=== PATIENT | female | born 1965 | race Caucasian/White ===

== ENCOUNTER 2016-11-18 12:35 | Emergency (ER) | payer MEDICAID ==
[2016-11-18 12:41] VITALS: BP 128/81
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
== END 2016-11-18 13:50 | disposition home or self-care (01) ==
LOC: DL.ED 12:35
DX: S20.20XA Contusion of thorax, unspecified, initial encounter (principal); K21.9 Gastro-esophageal reflux disease without esophagitis; F32.9 Major depressive disorder, single episode, unspecified; F17.210 Nicotine dependence, cigarettes, uncomplicated; F41.9 Anxiety disorder, unspecified; Z90.49 Acquired absence of other specified parts of digestive tract; Z88.0 Allergy status to penicillin; Y04.8XXA Assault by other bodily force, initial encounter
CPT/HCPCS: 71101-RT; 99283

== ENCOUNTER 2017-08-30 12:02 | Emergency (ER) | payer MEDICAID ==
[2017-08-30 12:23] VITALS: BP 113/71
[2017-08-30] MEDS ORDERED: Acetaminophen 325 MG Tab PO ONE (13:02)
[2017-08-30 13:18] LABS: CHLORIDE,CL 106 mmol/L (101-111); SODIUM,NA 137 mmol/L (135-145)
[2017-08-30] MEDS ORDERED: methylPREDNISolone Sodium Succinate 125 MG/2 ML SDV IVPUSH ONE (13:33)
[2017-08-30] MEDS ORDERED: Albuterol/Ipratropium 3.0-0.5 MG/3 ML Neb Soln NEB ONE (13:35)
--- NOTE | 2017-09-02 04:31 | EDM.PDOC ---
Scribed by Krista Gordon 08/30/17 [id number] for Rita Kirk PA-C ED HPI GENERAL MEDICAL PROBLEM - General Chief Complaint: Respiratory Problem Stated Complaint: COLD [phone] Time Seen by Provider: 08/30/17 12:25 Source of Information: Reports: Patient, RN, RN Notes Reviewed History Limitations: Reports: No Limitations - History of Present Illness INITIAL COMMENTS - FREE TEXT/NARRATIVE: Patient presents to ER with cough, lungs burning and fever x1 week. She has a productive cough with pink green yellow sputum. Her Albuterol is not helping. Onset: Gradual Duration: Getting Worse Location: Reports: Chest Severity: Mild Improves with: Reports: None Worsens with: Reports: None Associated Symptoms: Reports: No Other Symptoms Throat Pain Score (Numeric/FACES): 8 - Related Data Allergies Allergy/AdvReac Type Severity Reaction Status Date / Time Penicillins Allergy Rash Verified 11/06/16 07:48 Home Meds: Home Meds ALPRAZolam [Alprazolam] 1 tab PO ASDIRECTED 07/29/16 [History] Acetaminophen/Butalbital/Caff [Fioricet 325-50-40 MG] 1 tab PO ASDIRECTED PRN MDD \ 07/29/16 [History] Estrogens, Conjugated [Premarin Vaginal Crm] 0.5 gm VAG ASDIRECTED PRN 07/29/16 [History] Multivitamin [Multivitamins] 1 tab PO DAILY 07/29/16 [History] Omeprazole Magnesium [Prilosec Otc] 1 tab PO DAILY 07/29/16 [History] Progesterone,Micronized [Progesterone Micronized] 1 squirt TOP DAILY 07/29/16 [ History] Promethazine HCl 25 mg PO ASDIRECTED PRN 07/29/16 [History] Ranitidine HCl [Zantac 75] 1 tab PO BID 07/29/16 [History] Testosterone 5 gm TD DAILY 07/29/16 [History] hydrOXYzine Pamoate [Hydroxyzine Pamoate] 1 tab PO TID 07/29/16 [History] Albuterol [IJD: Ventolin HFA] 1 puff IH Q4HR PRN 11/06/16 [History] Kelp 100 mg PO DAILY 11/06/16 [History] Pregabalin [Lyrica] 50 mg PO TID 11/06/16 [History] Thiamine HCl [Vitamin B-1] 50 mg PO DAILY 11/06/16 [History] oxyCODONE 5 mg PO 5XDAY PRN 11/06/16 [History] Past Medical History Respiratory History: Reports: Pneumothorax, Other (See Below) Other Respiratory History: collapsed lung Gastrointestinal History: Reports: GERD Musculoskeletal History: Reports: Back Pain, Chronic, Fracture, Other (See Below ) Psychiatric History: Reports: Anxiety, Depression - Past Surgical History HEENT Surgical History: Reports: Tonsillectomy Respiratory Surgical History: Reports: Lung Resection GI Surgical History: Reports: Lysis of Adhesions Female Surgical History: Reports: Section, Cystectomy, Other (See Below) Other Female Surgeries/Procedures: partial hyst Social & Family History - Family History Family Medical History: Noncontributory - Tobacco Use Smoking Status *Q: Current Every Day Smoker Years of Tobacco use: 35 Packs/Tins Daily: 1 Second Hand Smoke Exposure: Yes - Caffeine Use Caffeine Use: Reports: Soda, Tea - Recreational Drug Use Recreational Drug Use: No - Living Situation & Occupation Living situation: Reports: with Significant Other Occupation: Disabled ED ROS GENERAL - Review of Systems Review Of Systems: ROS reveals no pertinent complaints other than HPI. ED EXAM, GENERAL - Physical Exam Exam: See Below Exam Limited By: No Limitations General Appearance: Alert, WD/WN, No Apparent Distress Eye Exam: Bilateral Eye: Normal Inspection Ears: Normal External Exam, Normal Canal, Hearing Grossly Normal, Normal TMs Nose: Normal Inspection, Normal Mucosa, No Blood Throat/Mouth: Normal Inspection, Normal Lips, Normal Teeth, Normal Gums, Normal Oropharynx, Normal Voice, No Airway Compromise Head: Atraumatic, Normocephalic Neck: Lymphadenopathy (L), Lymphadenopathy (R) Respiratory/Chest: No Respiratory Distress, Rales (fine at bases), Other ( diminished harsh dry cough with deep inspiration. ) Cardiovascular: Normal Peripheral Pulses, Regular Rate, Rhythm, No Edema, No Gallop, No JVD, No Murmur, No Rub GI/Abdominal: Normal Bowel Sounds, Soft, Non-Tender, No Organomegaly, No Distention, No Abnormal Bruit, No Mass (Female) Exam: Deferred Rectal (Female) Exam: Deferred Back Exam: Normal Inspection, Full Range of Motion Extremities: Normal Range of Motion Neurological: Alert, Oriented Psychiatric: Normal Affect, Normal Mood Skin Exam: Warm, Dry, Intact, Normal Color, No Rash Course - Vital Signs Last Recorded V/S: Last Vital Signs Temp 101.2 F H 08/30/17 12:20 Pulse 108 H 08/30/17 13:51 Resp 20 08/30/17 12:20 BP 113/71 08/30/17 12:20 Pulse Ox 95 08/30/17 12:20 - Orders/Labs/Meds Labs: Laboratory Tests 08/30/17 08/30/17 Range/Units 12:50 12:50 WBC 11.5 H (5.0-10.0) 10^3/uL RBC 4.53 (4.2-5.4) 10^6/uL Hgb 14.3 (12.0-16.0) g/dL Hct 42.7 (37.0-47.0) % MCV 94.3 (80-100) fL MCH 31.6 (27.0-34.0) pg MCHC 33.5 (33.0-35.0) g/dL Plt Count 203 (150-450) 10^3/uL Neut % (Auto) 72.7 (42.2-75.2) % Lymph % (Auto) 18.0 L (20.5-50.1) % [place] % (Auto) 8.7 H (2-8) % Eos % (Auto) 0.5 L (1.0-3.0) % Baso % (Auto) 0.1 (0.0-1.0) % Sodium 137 (135-145) mmol/L Potassium 3.9 (3.6-5.0) mmol/L Chloride 106 (101-111) mmol/L Carbon Dioxide 20.0 L (21.0-31.0) mmol/L Anion Gap 14.9 BUN 14 (7-18) mg/dL Creatinine 0.8 (0.6-1.3) mg/dL Est Cr Clr Drug Dosing 68.82 mL/min Estimated GFR (MDRD) > 60 BUN/Creatinine Ratio 17.50 Glucose 99 (74-105) mg/dL Calcium 8.7 (8.4-10.2) mg/dl Total Bilirubin 0.4 (0.2-1.0) mg/dL AST 41 (10-42) IU/L ALT 33 (10-60) IU/L Alkaline Phosphatase 86 (42-121) IU/L Total Protein 7.9 (6.7-8.2) g/dl Albumin 4.4 (3.2-5.5) g/dl Globulin 3.5 Albumin/Globulin Ratio 1.26 Meds: Medications Discontinued Medications Generic Name Dose Route Start Last Admin Trade Name [place] PRN Reason Stop Dose Admin Acetaminophen 650 mg 08/30/17 13:02 08/30/17 13:37 Tylenol PO 08/30/17 13:03 Not Given NOW ONE Albuterol/Ipratropium 3 ml 08/30/17 13:35 08/30/17 13:45 Duoneb 3.0-0.5 Mg/3 Ml NEB 08/30/17 13:36 3 ml ONETIME ONE Administration Methylprednisolone Sodium Succinate 125 mg 08/30/17 13:33 08/30/17 13:59 Solu-Medrol IVPUSH 08/30/17 13:34 Not Given ONETIME ONE - Re-Assessments/Exams Free Text/Narrative Re-Assessment/Exam: Demanding, Rx for Phenergan with codeine. Disgruntled when RX not given. Patient has had minimal cough during length of ED stay. CXR unremarkable. Rx not indicated at this time. Departure - Departure Time of Disposition: 13:57 Disposition: Home, Self-Care 01 Condition: Good Clinical Impression: Bronchitis, Tobacco abuse Exacerbation of asthma Qualifiers: Asthma severity: unspecified severity Asthma persistence: unspecified Qualified Code(s): J45.901 - Unspecified asthma with (acute) exacerbation - Discharge Information Instructions: Asthma, Adult, Acute Bronchitis, Adult, [id number] Forms: ED Department Discharge Additional Instructions: azithromycin 500mg today and then 250mg daily x 4 days Tesselon Pearles 200mg one every 8 hours # 20 Medrol Dose Pack Follow up in clinic next week Albuterol Nebulizerevery 4 hours as needed I have read and agree with the documentation that has been completed regarding this visit. By signing this record, I attest that the documentation was completed in my physical presence and is an accurate record of the encounter.
== END 2017-08-30 14:15 | disposition home or self-care (01) ==
LOC: DL.ED 12:02
DX: J45.901 Unspecified asthma with (acute) exacerbation (principal); F17.210 Nicotine dependence, cigarettes, uncomplicated; K21.9 Gastro-esophageal reflux disease without esophagitis; F41.9 Anxiety disorder, unspecified; F32.9 Major depressive disorder, single episode, unspecified; Z79.899 Other long term (current) drug therapy; Z88.0 Allergy status to penicillin
CPT/HCPCS: 36415; 71046; 80053; 85025; 87804; 99285